=== PATIENT | female | born 1965 | race Caucasian/White ===

== ENCOUNTER 2017-06-21 09:44 | Day surgery (SDC) | payer MEDICAID ==
[~2017-06-21 09:44] MED LIST: RINGER'S SOLUTION,LACTATED 1,000 ML IV PRN
[2017-06-21] MEDS ORDERED: RINGER'S SOLUTION,LACTATED 1,000 ML IV PRN (11:11)
[2017-06-21 12:14] VITALS: BP 143/66
--- NOTE | 2017-06-21 15:58 | OR ---
Operative Report - Dictated Report Narrative: OPERATIVE REPORT DATE OF OPERATION: 06/21/2017 PREOPERATIVE DIAGNOSIS: Family history of colon cancer. No prior dedicated colon studies. POSTOPERATIVE DIAGNOSIS: Normal colonoscopy OPERATION: Colonoscopy SURGEON: Yessica Guzmán MD ANESTHESIA: ARIEL Aguila CRNA INDICATIONS FOR PROCEDURE: The patient is a 51-year-old female referred by Dr Rosa. She has had no previous dedicated colon studies. Her grandfather had colon cancer at an advanced age. She is currently asymptomatic FINDINGS: Normal colonoscopy NARRATIVE OF PROCEDURE: The patient was identified in the holding area, and prior to the administration of anesthetic, a multidisciplinary timeout was observed. With the patient in the left lateral position and after the administration of intravenous sedation, the perineum was inspected. There was no evidence of pilonidal disease or skin breakdown. The external appearance of the anus was normal. Sphincter tone was good. The flexible fiberoptic colonoscope was inserted into the rectum which was insufflated with air. The rectal mucosa and submucosal vascular pattern appeared normal, the prep was seen to be complete. The scope was advanced through the sigmoid colon, up the descending colon, and around the splenic flexure where the triangular haustral architecture of the transverse colon was seen. The scope was advanced across the transverse colon, around the hepatic flexure to the cecum, where the confluence of tenia and the ileocecal valve were identified. The mucosa at this level appeared normal. The scope was then slowly withdrawn in a circular fashion so that all aspects of colonic mucosa were inspected. The colon was normal in course and caliber. The haustral architecture appeared well preserved throughout with no evidence of external compression. The mucosa and submucosal vascular pattern appeared normal, specifically there was no gross evidence to suggest colitis or inflammatory bowel disease and no AV malformations were seen. No angie diverticulosis was demonstrated. No polyps were encountered. The scope was gradually withdrawn to the level of the rectum. As much insufflated air as possible was removed. The scope was withdrawn from the patient and the procedure terminated. The patient tolerated the anesthetic and procedure well without complication and was transferred back to the ambulatory surgery area awake and in stable condition. The patient remained stable throughout a period of postoperative observation. She denied abdominal discomfort, was able to tolerate by mouth intake, and was up without assistance. I shared the operative findings with the patient and she was given copies of the photographs which appear in the medical record. She was discharged home with instructions not to engage in hazardous activity today , but may resume normal activity tomorrow, and advance diet as tolerated. She is to continue those medications as listed in the history and physical exam. RECOMMENDATION: Colon surveillance in 10 years depending upon findings and symptoms Reviewed and electronically signed
== END 2017-06-21 09:45 | disposition home or self-care (01) ==
LOC: AMB 09:44
PROVIDERS: ATTEND Surgery
PROC: 0DJD8ZZ Inspection of Lower Intestinal Tract, Via Natural or Artificial Opening Endoscopic (ICD-10-PCS; principal; 2017-06-21 10:30)
DX: Z12.11 Encounter for screening for malignant neoplasm of colon (principal); I10 Essential (primary) hypertension; E11.9 Type 2 diabetes mellitus without complications; E78.5 Hyperlipidemia, unspecified; I25.10 Atherosclerotic heart disease of native coronary artery without angina pectoris; F17.200 Nicotine dependence, unspecified, uncomplicated; Z68.38 Body mass index [BMI] 38.0-38.9, adult; Z80.0 Family history of malignant neoplasm of digestive organs

== ENCOUNTER 2020-11-14 15:02 | Inpatient (IN) ==
[2020-11-14] MEDS ORDERED: ALBUTEROL SULFATE 2.5 MG/0.5 ML VIAL.NEB IH ONE (15:21)
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
[2020-11-14 15:49] LABS: Hematocrit 37.6 % (37.0-47.0); Hemoglobin 11.6 gm/dL (12.5-16.0); Mean Cell Volume 88.3 fl (78-100); Mean Corpuscular Hemoglobin 27.2 pg (27-31); Mean Corpuscular Hgb Conc 30.9 g/dl (32-36); Mean Platelet Volume 10.5 fl (8-12.5); Neutrophil # 6.6 K/mm3 (1.3-6.0); Neutrophil % 72.2 % (42-75.0); Platelet Count 233 K/mm3 (150-450); Red Blood Count 4.26 M/mm3 (4.2-5.4); Red Cell Distribution Width 15.8 % (11.5-14.0); White Blood Count 9.2 K/mm3 (4.0-10.5)
[2020-11-14 16:29] LABS: Albumin * 3.6 gm/dl (3.4-5.0); Anion Gap 10.6 mmol/L (6.8-13.8); BUN/Creatinine Ratio 19.2 (9.0-21.6); Ca. Corrected For Albumin 8.4 mg/dL (8.4-10.2); Calcium * 8.4 mg/dL (7.9-10.9); Carbon Dioxide 27.1 mmol/L (24-32.6); Potassium 3.7 mmol/L (3.4-4.6); Total Protein 6.7 gm/dL (6.2-8.2); Troponin I 0.038 ng/mL (0.00-0.10)
[2020-11-14] MEDS ORDERED: FUROSEMIDE 10 MG/ML VIAL IV ONE (16:29)
[2020-11-14] MEDS ORDERED: cefTRIAXone SODIUM 1,000 MG/100 ML BAG IV ONE (17:56)
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
[2020-11-14] MEDS: LISINOPRIL 20 MG TABLET PO SCH (20:32)
[2020-11-14] MEDS: INSULIN GLARGINE,HUM.REC.ANLOG 100 UNITS/ML VIAL SC SCH (20:33)
[2020-11-15 06:31] LABS: Hematocrit 33.5 % (37.0-47.0); Hemoglobin 10.1 gm/dL (12.5-16.0); Mean Cell Volume 89.6 fl (78-100); Mean Corpuscular Hgb Conc 30.1 g/dl (32-36); Mean Platelet Volume 10.3 fl (8-12.5); Neutrophil % 65.7 % (42-75.0); Platelet Count 231 K/mm3 (150-450); Red Blood Count 3.74 M/mm3 (4.2-5.4); Red Cell Distribution Width 15.8 % (11.5-14.0); White Blood Count 7.6 K/mm3 (4.0-10.5)
[2020-11-15 06:54] LABS: Anion Gap 12.6 mmol/L (6.8-13.8); BUN/Creatinine Ratio 13.2 (9.0-21.6); Ca. Corrected For Albumin 8.9 mg/dL (8.4-10.2); Calcium * 8.4 mg/dL (7.9-10.9); Carbon Dioxide 30.4 mmol/L (24-32.6); TSH * 3.156 uIU/mL (0.358-3.74)
[2020-11-15] MEDS: INSULIN LISPRO 100 UNITS/ML VIAL SC SCH ×3 (07:07→16:51)
[2020-11-15] MEDS ORDERED: POTASSIUM CHLORIDE 10 MEQ TABLET.SA PO ONE (07:54)
[2020-11-15] MEDS: FUROSEMIDE 10 MG/ML VIAL IV SCH ×4 (08:23→19:05)
[2020-11-15] MEDS: POTASSIUM CHLORIDE 20 MEQ TABLET.SA PO SCH ×2 (08:32→16:57)
[2020-11-15] MEDS: LISINOPRIL 20 MG TABLET PO SCH (08:32)
[2020-11-15] MEDS: FUROSEMIDE 10 MG/ML VIAL IV ONE ×2 (08:32→08:42)
--- NOTE | 2020-11-15 14:04 | PN ---
Subjective - Date and Time Seen Date: 11/15/20 Time: 13:44 Subjective Narrative: Patients tired but says she is less SOB. Afebrile. Weight is not accurate. Fluid balance only shows a little over 1 liter. She did not get the the IV lasix I ordered last night. Objective - Review of Systems Generalized/Overall Review: Reports: Weakness. Denies: Chills, Fever EENTM: Denies: Blurred Vision Respiratory: Reports: Shortness of Breath, Orthopnea. Denies: Cough, Wheezing Cardiac: Reports: Edema. Denies: Chest Pain, Palpitations Abdominal: Denies: Nausea, Vomiting, Abdominal Pain Genitourinary Symptoms: Denies: Urgency, Frequency Musculoskeletal Complaints: Denies: Joint Pain, Back Pain Neurological: Denies: Headache Skin: Reports: Dryness, Lesions - scaly, Rash Endocrine: Denies: Intolerance to Cold, Intolerance to Heat Misc: All systems neg except as marked - Vitals Vitals: Last Vital Signs Temp 36.4 C 11/15/20 06:35 Pulse 133 H 11/15/20 08:44 Resp 18 11/15/20 06:35 BP 102/60 11/15/20 08:44 Pulse Ox 94 11/15/20 06:35 - Abnormal Lab Findings Abnormal Lab Findings: Abnormal Lab Results 11/14/20 11/14/20 11/14/20 Range/Units 15:35 16:00 16:00 RBC (4.2-5.4) M/mm3 Hgb 11.6 L (12.5-16.0) gm/dL Hct (37.0-47.0) % MCHC 30.9 L (32-36) g/dl RDW 15.8 H (11.5-14.0) % Immature Gran # (Auto) 0.04 H (0.000-0.0310) K/mm3 Lymphocytes % 16.2 L (20-51) % Monocytes % 10.7 H (0.0-9) % Neutrophils # 6.6 H (1.3-6.0) K/mm3 Lymphocytes # 1.48 L (1.5-3.5) k/mm3 D-Dimer 9.42 H (0.19-0.49) ugFEU/mL Sodium 129 L (132-142) mmol/L Potassium (3.4-4.6) mmol/L Chloride 95 L (97-106) mmol/L Random Glucose 161 H (70-110) mg/dL Total Bilirubin 3.0 H (0.0-1.1) mg/dL AST 497 H (0-48) U/L ALT 1258 H (19-67) U/L Alkaline Phosphatase 236 H (50-170) U/L B-Natriuretic Peptide 2531 H (5-150) pg/mL Total Protein (6.2-8.2) gm/dL Albumin (3.4-5.0) gm/dl 11/15/20 11/15/20 Range/Units 06:26 06:26 RBC 3.74 L (4.2-5.4) M/mm3 Hgb 10.1 L (12.5-16.0) gm/dL Hct 33.5 L (37.0-47.0) % MCHC 30.1 L (32-36) g/dl RDW 15.8 H (11.5-14.0) % Immature Gran # (Auto) (0.000-0.0310) K/mm3 Lymphocytes % (20-51) % Monocytes % 12.0 H (0.0-9) % Neutrophils # (1.3-6.0) K/mm3 Lymphocytes # (1.5-3.5) k/mm3 D-Dimer (0.19-0.49) ugFEU/mL Sodium (132-142) mmol/L Potassium 3.0 L (3.4-4.6) mmol/L Chloride (97-106) mmol/L Random Glucose 114 H (70-110) mg/dL Total Bilirubin 2.0 H (0.0-1.1) mg/dL AST 306 H (0-48) U/L ALT 887 H (19-67) U/L Alkaline Phosphatase 189 H (50-170) U/L B-Natriuretic Peptide (5-150) pg/mL Total Protein 6.0 L (6.2-8.2) gm/dL Albumin 3.0 L (3.4-5.0) gm/dl - Exam Constitutional: Present: Alert, Oriented x3, Cooperative, Morbidly obese ENT Exam: Present: hearing grossly normal Neck: Present: supple. Absent: lymphadenopathy (R), lymphadenopathy (L) Respiratory: Present: decreased breath sounds, No rales, No wheezing Cardiovascular/Chest: Present: regular rate, rhythm, no JVD, tachycardia, systolic murmur - faint Abdomen: Present: Normal bowel sounds, soft, nontender, obese Extremity: Present: lower extremity edema, other - positive tattoo, flaky. Absent: no calf tenderness Assessment/Plan Plan Narrative: Latonya is a 54-year-old white female who was admitted yesterday for increasing shortness of breath, edema and was found to be in acute congestive heart failure. She was a patient of mine who was lost to follow-up since February 2019. Reviewing her records I did not see her to have had a previous past medical history of congestive heart failure and so this is not an acute on chronic exacerbation of CHF. 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 She did have a history of coronary artery disease status post stenting with a history of MD. Her echocardiogram today s howed borderline left ventricular hypertrophy, with severe global wall motion hypokinesis, ejection fraction of only 19-20%, mild MR, dilated inferior vena cava, moderate TR and RVSP of 49 with pulmonary hypertension. We will start her on Coreg 3.125 twice daily, spironolactone 25 mg p.o. daily to be started in am, d/c K in the morning, continue with her IV Lasix diuresis. We will continue with her LITO inhibitor I but will decrease it to 5 mg PO Q Daily . If her BP allows will ad isosorbide. I will change her status from observation to acute as she needs further diuresis to improve her congestive heart failure status and to decompress her PHTN and liver congestion. Her ultrasound shows fatty liver and thickening of the gallbladder wall without any biliary dilatation consider acalculous cholecystitis. Since patient is afebrile with no leukocytosis, clinical signs of gallbladder disease I still think this is due to passive congestion of her liver from her severe acute congestive heart failure as her liver function tests are improving with diuresis. I will sign outpatient to the physician transportation dispatch manager for this weekend. Continue to monitor fluid input output, daily weight, kidney function and electrolytes as well as liver function. - Problems/Diagnosis (1) Acute CHF Problem: Acute Qualifiers: Heart failure type: combined systolic and diastolic Qualified Code(s): I50.41 - Acute combined systolic (congestive) and diastolic (congestive) heart failure (2) Elevated liver enzymes Problem: Acute (3) Ascites Problem: Acute (4) Pleural effusion Problem: Acute (5) Diabetes mellitus Problem: Chronic Qualifiers: (6) Stented coronary artery Problem: Resolved (7) Hypertension Problem: Chronic Qualifiers: Hypertension type: essential hypertension Qualified Code(s): I10 - Essential (primary) hypertension (8) Hyperlipidemia Problem: Chronic Qualifiers: Hyperlipidemia type: pure hypercholesterolemia Qualified Code(s): E78.00 - Pure hypercholesterolemia, unspecified (9) Buschke-Ollendorf syndrome Problem: Chronic
[2020-11-15] MEDS: ENOXAPARIN SODIUM 40 MG/0.4 ML SYRG SC SCH (14:34)
[2020-11-15 19:08] LABS: Carbon Dioxide 29.3 mmol/L (24-32.6); Estimated Creat Clear 82.1
[2020-11-15 19:24] LABS: Potassium 4.1 mmol/L (3.4-4.6)
[2020-11-15 19:28] LABS: Anion Gap 12.8 mmol/L (6.8-13.8)
[2020-11-15] MEDS ORDERED: tiZANidine HCL 4 MG TABLET PO PRN (19:41)
[2020-11-15] MEDS: CARVEDILOL 3.125 MG TABLET PO SCH (20:09)
[2020-11-15] MEDS: INSULIN GLARGINE,HUM.REC.ANLOG 100 UNITS/ML VIAL SC SCH (20:13)
[2020-11-16] MEDS: INSULIN LISPRO 100 UNITS/ML VIAL SC SCH ×3 (06:46→17:21)
[2020-11-16 08:03] LABS: Albumin * 3.1 gm/dl (3.4-5.0); Anion Gap 11.3 mmol/L (6.8-13.8); BUN/Creatinine Ratio 17.8 (9.0-21.6); Bilirubin, Total 1.7 mg/dL (0.0-1.1); Ca. Corrected For Albumin 8.9 mg/dL (8.4-10.2); Calcium * 8.5 mg/dL (7.9-10.9); Carbon Dioxide 30.5 mmol/L (24-32.6); Potassium 3.8 mmol/L (3.4-4.6); Total Protein 5.8 gm/dL (6.2-8.2); Troponin I 0.028 ng/mL (0.00-0.10)
[2020-11-16] MEDS: CARVEDILOL 3.125 MG TABLET PO SCH ×2 (09:08→20:36)
[2020-11-16] MEDS: POTASSIUM CHLORIDE 10 MEQ TABLET.SA PO SCH (09:08)
[2020-11-16] MEDS: SPIRONOLACTONE 25 MG TABLET PO SCH (09:09)
[2020-11-16] MEDS: LISINOPRIL 5 MG TABLET PO SCH (09:10)
[2020-11-16] MEDS: FUROSEMIDE 10 MG/ML VIAL IV SCH ×2 (09:14→17:15)
--- NOTE | 2020-11-16 10:53 | PN ---
Subjective - Date and Time Seen Date: 11/16/20 Time: 10:45 Subjective Narrative: She's been unable to sleep. Has a rash across her back. Also has significant anxiety about having an EF of 20%, and is afraid of dying. Her father last year of heart troubles, and she is scared this will also happen to her. Objective - Review of Systems Respiratory: Denies: Shortness of Breath Abdominal: Reports: No Symptoms Reported Genitourinary Symptoms: Reports: No Symptoms Reported Neurological: Reports: Anxiety Skin: Reports: Rash - Vitals Vitals: Last Vital Signs Temp 36.3 C 11/16/20 06:41 Pulse 89 11/16/20 09:14 Resp 16 11/16/20 06:41 BP 132/78 11/16/20 09:14 Pulse Ox 96 11/16/20 06:41 - Abnormal Lab Findings Abnormal Lab Findings: Abnormal Lab Results 11/15/20 11/16/20 Range/Units 18:43 07:24 Chloride 95 L 94 L (97-106) mmol/L Random Glucose 163 H D 129 H (70-110) mg/dL Total Bilirubin 1.7 H (0.0-1.1) mg/dL AST 198 H (0-48) U/L ALT 712 H (19-67) U/L Alkaline Phosphatase 179 H (50-170) U/L B-Natriuretic Peptide 1274 H (5-150) pg/mL Total Protein 5.8 L (6.2-8.2) gm/dL Albumin 3.1 L (3.4-5.0) gm/dl - Exam Constitutional: Present: Alert, Cooperative, No distress, Morbidly obese Respiratory: Present: lungs clear, normal breath sounds Cardiovascular/Chest: Present: other - distant heart sounds Abdomen: Present: soft, obese Extremity: Absent: lower extremity edema Skin Exam: Present: other - erythematous macular rash of back Neurologic: Present: other - tearful Assessment/Plan Plan Narrative: Day #3 of hospitalization for acute CHF exacerbation. Transaminases and alkaline phosphatase improving, and she is breathing easier. These were likely elevated due to her acute CHF. She is getting 40 mg IV lasix bid, and may be able to change this to po tomorrow. Echo showed an EF of 20% with a decrease in global wall motion. Carvedilol, spironolactone, K+ started yesterday. She may qualify for cardiopulmonary rehab after DC. Anticipate DC in greater than 24 hours. - Problems/Diagnosis (1) Heart failure with reduced ejection fraction Problem: Acute (2) Acute CHF Problem: Acute Qualifiers: Heart failure type: combined systolic and diastolic Qualified Code(s): I50.41 - Acute combined systolic (congestive) and diastolic (congestive) heart failure (3) Elevated bilirubin Problem: Acute (4) Elevated liver enzymes Problem: Acute (5) Pleural effusion Problem: Acute (6) Hypertension Problem: Chronic Qualifiers: Hypertension type: essential hypertension Qualified Code(s): I10 - Essential (primary) hypertension (7) Hyperlipidemia Problem: Chronic Qualifiers: Hyperlipidemia type: pure hypercholesterolemia Qualified Code(s): E78.00 - Pure hypercholesterolemia, unspecified (8) Morbid obesity with BMI of 40.0-44.9, adult Problem: Acute (9) Coronary artery disease Problem: Acute (10) Diabetes mellitus Problem: Chronic Qualifiers: (11) Anxiety Problem: Acute (12) Rash Problem: Acute
[2020-11-16] MEDS: hydrOXYzine PAMOATE 25 MG CAPSULE PO PRN ×2 (14:27→22:29)
[2020-11-16] MEDS: ENOXAPARIN SODIUM 40 MG/0.4 ML SYRG SC SCH (14:27)
[2020-11-16] MEDS: LORazepam 0.5 MG TABLET PO PRN (20:36)
[2020-11-16] MEDS: INSULIN GLARGINE,HUM.REC.ANLOG 100 UNITS/ML VIAL SC SCH (20:36)
[2020-11-17] MEDS: INSULIN LISPRO 100 UNITS/ML VIAL SC SCH ×3 (06:27→16:55)
[2020-11-17] MEDS: FUROSEMIDE 10 MG/ML VIAL IV SCH (08:01)
[2020-11-17] MEDS: SPIRONOLACTONE 25 MG TABLET PO SCH (08:05)
[2020-11-17] MEDS: LISINOPRIL 5 MG TABLET PO SCH (08:06)
[2020-11-17] MEDS: POTASSIUM CHLORIDE 10 MEQ TABLET.SA PO SCH (08:06)
[2020-11-17] MEDS: CARVEDILOL 3.125 MG TABLET PO SCH ×2 (08:06→20:26)
[2020-11-17 08:38] LABS: Albumin * 3.2 gm/dl (3.4-5.0); Anion Gap 7.3 mmol/L (6.8-13.8); BUN/Creatinine Ratio 16.7 (9.0-21.6); Bilirubin, Total 1.5 mg/dL (0.0-1.1); Ca. Corrected For Albumin 8.9 mg/dL (8.4-10.2); Calcium * 8.6 mg/dL (7.9-10.9); Carbon Dioxide 34.7 mmol/L (24-32.6); Total Protein 6.3 gm/dL (6.2-8.2)
--- NOTE | 2020-11-17 09:11 | PN ---
Subjective - Date and Time Seen Date: 11/17/20 Time: 09:30 Subjective Narrative: She has some nausea this morning. Is breathing better. Is worried about getting SOB at home, and is wondering if she will need oxygen. Would like a walker and bedside commode. Objective - Review of Systems Generalized/Overall Review: Denies: Fever Respiratory: Reports: Shortness of Breath - with exertion Cardiac: Denies: Edema Abdominal: Reports: Nausea Genitourinary Symptoms: Reports: No Symptoms Reported - Vitals Vitals: Last Vital Signs Temp 36.8 C 11/17/20 06:44 Pulse 95 11/17/20 08:06 Resp 20 11/17/20 06:44 BP 124/63 11/17/20 08:06 Pulse Ox 95 11/17/20 06:44 - Abnormal Lab Findings Abnormal Lab Findings: Abnormal Lab Results 11/17/20 Range/Units 08:08 Chloride 94 L (97-106) mmol/L Carbon Dioxide 34.7 H (24-32.6) mmol/L Random Glucose 120 H (70-110) mg/dL Total Bilirubin 1.5 H (0.0-1.1) mg/dL AST 144 H (0-48) U/L ALT 596 H (19-67) U/L Alkaline Phosphatase 176 H (50-170) U/L Albumin 3.2 L (3.4-5.0) gm/dl - Exam Constitutional: Present: Alert, Cooperative, No distress, Morbidly obese Respiratory: Present: lungs clear, decreased breath sounds Cardiovascular/Chest: Present: regular rate, rhythm - distant heart sounds Abdomen: Present: nontender, obese Extremity: Absent: lower extremity edema Eye contact: Present: cooperative, good eye contact Assessment/Plan Plan Narrative: Day #4 of hospitalization for acute CHF exacerbation. Transaminases and alkaline phosphatase continue to improve and she is breathing easier than on admission. She is not requiring oxygen at rest, and vitals are normal. These were likely elevated due to her acute CHF. Will change lasix from IV to PO, and change timing so her latest dose is early afternoon to avoid interfering with sleep overnight. Echo showed an EF of 20% with a decrease in global wall motion. Carvedilol, spironolactone, K+ started this admission. She may qualify for cardiopulmonary rehab after DC. PT yan ordered to see if she qualifies for a walker. Home O2 eval also ordered. She would like a bedside commode at home, and appreciate case management assistance in acquiring one of these. - Problems/Diagnosis (1) Heart failure with reduced ejection fraction Problem: Acute (2) Acute CHF Problem: Acute Qualifiers: Heart failure type: combined systolic and diastolic Qualified Code(s): I50.41 - Acute combined systolic (congestive) and diastolic (congestive) heart failure (3) Elevated bilirubin Problem: Acute (4) Elevated liver enzymes Problem: Acute (5) Pleural effusion Problem: Acute (6) Hypertension Problem: Chronic Qualifiers: Hypertension type: essential hypertension Qualified Code(s): I10 - Essential (primary) hypertension (7) Hyperlipidemia Problem: Chronic Qualifiers: Hyperlipidemia type: pure hypercholesterolemia Qualified Code(s): E78.00 - Pure hypercholesterolemia, unspecified (8) Morbid obesity with BMI of 40.0-44.9, adult Problem: Acute (9) Coronary artery disease Problem: Acute (10) Diabetes mellitus Problem: Chronic Qualifiers: (11) Anxiety Problem: Acute (12) Rash Problem: Acute
[2020-11-17] MEDS: ENOXAPARIN SODIUM 40 MG/0.4 ML SYRG SC SCH (14:19)
[2020-11-17] MEDS: FUROSEMIDE 40 MG TABLET PO SCH ×2 (14:21→20:26)
[2020-11-17] MEDS: hydrOXYzine PAMOATE 25 MG CAPSULE PO PRN (15:37)
[2020-11-17] MEDS: INSULIN GLARGINE,HUM.REC.ANLOG 100 UNITS/ML VIAL SC SCH (20:26)
[2020-11-17] MEDS: LORazepam 0.5 MG TABLET PO PRN (22:16)
[2020-11-18] MEDS: hydrOXYzine PAMOATE 25 MG CAPSULE PO PRN (00:46)
[2020-11-18 07:08] LABS: Albumin * 3.2 gm/dl (3.4-5.0); Anion Gap 7.6 mmol/L (6.8-13.8); BUN/Creatinine Ratio 15.5 (9.0-21.6); Bilirubin, Total 1.3 mg/dL (0.0-1.1); Ca. Corrected For Albumin 9.1 mg/dL (8.4-10.2); Calcium * 8.8 mg/dL (7.9-10.9); Potassium 3.6 mmol/L (3.4-4.6); Total Protein 6.5 gm/dL (6.2-8.2)
[2020-11-18] MEDS: INSULIN LISPRO 100 UNITS/ML VIAL SC SCH ×2 (07:22→11:54)
[2020-11-18] MEDS: SPIRONOLACTONE 25 MG TABLET PO SCH (08:15)
[2020-11-18] MEDS: CARVEDILOL 3.125 MG TABLET PO SCH (08:15)
[2020-11-18] MEDS: POTASSIUM CHLORIDE 10 MEQ TABLET.SA PO SCH (08:15)
[2020-11-18] MEDS: FUROSEMIDE 40 MG TABLET PO SCH (08:15)
[2020-11-18] MEDS: LISINOPRIL 5 MG TABLET PO SCH (08:16)
--- NOTE | 2020-11-18 08:32 | DS ---
(1) Acute CHF Problem: Resolved Qualifiers: Heart failure type: combined systolic and diastolic Qualified Code(s): I50.41 - Acute combined systolic (congestive) and diastolic (congestive) heart failure (2) Heart failure with reduced ejection fraction Diagnosis(s): combined with diastolic dysfunction Problem: Acute (3) Elevated liver enzymes Problem: Acute (4) Ascites Problem: Acute (5) Pleural effusion Problem: Acute (6) Diabetes mellitus Problem: Chronic Qualifiers: (7) Stented coronary artery Problem: Resolved (8) Hypertension Problem: Chronic Qualifiers: Hypertension type: essential hypertension Qualified Code(s): I10 - Essential (primary) hypertension (9) Hyperlipidemia Problem: Chronic Qualifiers: Hyperlipidemia type: pure hypercholesterolemia Qualified Code(s): E78.00 - Pure hypercholesterolemia, unspecified (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 The patient has been lost to follow-up since February 2019 when I sent her to [facility] to podiatry and infectious disease for possible osteomyelitis of her toe. The patient said that she had run out of her medications in July 2020 and pharmacy did not refill it. She was seen in our emergency room in 2020 for shortness of breath and was given Lasix with potassium pills and discharge. She has since run out of this medications and since the beginning of October she has been having shortness of breath. Today her shortness of breath was at its worse and so she went to the emergency room. Her hemoglobin was 11.6 with an MCV of 88.3, sodium of 129, chloride of 95, creatinine of 0.78 with a GFR of 82, random blood sugar 161, total bilirubin of 3, AST of 497, ALT of 1258, alkaline phosphatase of 236, troponin of 0.038, BNP of 2531, amylase lipase were within normal limits. She was SARS-CoV-2 negative. Her chest x-ray showed bilateral effusion left greater than right. Her EKG showed sinus tachycardia of [address]-T wave changes. She was then given 40 mg of IV Lasix and was admitted for further evaluation and treatment. She did have a CT scan as her D-dimer was elevated and it did not show any pulmonary embolism but showed congestive heart failure and liver cirrhosis. Her US showed thickened GB wall with no GB stones and normal biliary ducts- consider acalculous cholecystitits. Sinc she did not have fever, RUQ pain, leukocytosis and no N/V her elevated LFT were thought to be secondary to her passive congestion of her liver from acute CHF. Her Echo showed normal ventricular size, severe decrease in global wall motion, EF 20 %, mild MR, mild to moderate TR, PHTN, RVSP 49 mm Hg, Dilated IVC. Her elevated pulmonary pressure is likely due to left sided HF but she does have a h/o of chronic smoki ng but stopped last 2019. She was continued with diureses, and started on LITO I, Coreg, Spironolactone, will start her on Imdur. Her LFTS/BNP improved. Clinically she was less SOB. She lost 12 kg ( from 132 Kg to 120.2 Kg). We will discharge her today and make a referral to cardiology. She is homebound due to the severity of CHFand other medical conditions ( CAD s/p Stenting, DM type 2. Deconditoining, PEPE). She will need nursing service to monitor her medications and diet complicance, monitoring of weight and vital signs. The need for her PT is for strengthening exercises of her physical strength from deconditioning and improving her cardiopulmonary reserve. The need for home [facility] services is directly related to the time spent face to face with the patient. Will hold her metformin and also start her on a statin when her LFT are back to normal. Procedures Performed: none Results and Findings: Pending Mircobiology Results 11/14/20 16:00 Blood Blood Culture - Preliminary NO GROWTH AFTER 48 HOURS 11/14/20 15:35 Blood Blood Culture - Preliminary NO GROWTH AFTER 48 HOURS Lab Pending Results 11/14/20 15:35: WBC 9.2, RBC 4.26, Hgb 11.6 L, Hct 37.6, MCV 88.3, MCH 27.2, MCHC 30.9 L, RDW 15.8 H, Plt Count 233, MPV 10.5, Immature Gran % (Auto) 0.40, Immature Gran # (Auto) 0.04 H, Neutrophils % 72.2, Lymphocytes % 16.2 L, Monocytes % 10.7 H, Eosinophils % 0.2, Basophils % 0.3, Nucleated RBC % 0.0, Neutrophils # 6.6 H, Lymphocytes # 1.48 L, Monocytes # 1.0, Eosinophils # 0.0, Absolute Basophils 0.0 11/14/20 15:35: SARS-CoV-2 (PCR) Not detected 11/14/20 16:00: Sodium 129 L, Plasma Sodium 130, Potassium 3.7, Chloride 95 L, Carbon Dioxide 27.1, Anion Gap 10.6, BUN 15, Creatinine 0.78, Est GFR (Non-Af Amer) 82, BUN/Creatinine Ratio 19.2, Random Glucose 161 H, Calcium 8.4, Calcium Adj for Albumin 8.4, Total Bilirubin 3.0 H, AST 497 H, ALT 1258 H, Alkaline Phosphatase 236 H, Troponin I 0.038, B-Natriuretic Peptide 2531 H, Total Protein 6.7, Albumin 3.6 11/14/20 16:00: D-Dimer 9.42 H 11/14/20 16:00: Lipase 310 11/15/20 06:26: WBC 7.6, RBC 3.74 L, Hgb 10.1 L, Hct 33.5 L, MCV 89.6, MCH 27.0, MCHC 30.1 L, RDW 15.8 H, Plt Count 231, MPV 10.3, Immature Gran % (Auto) 0.10, Immature Gran # (Auto) 0.01, Neutrophils % 65.7, Lymphocytes % 21.1, Monocytes % 12.0 H, Eosinophils % 0.7, Basophils % 0.4, Nucleated RBC % 0.0, Neutrophils # 5.0, Lymphocytes # 1.60, Monocytes # 0.9, Eosinophils # 0.1, Absolute Basophils 0.0 11/15/20 06:26: Sodium 137, Plasma Sodium 137, Potassium 3.0 L, Chloride 97, Carbon Dioxide 30.4, Anion Gap 12.6, BUN 12, Creatinine 0.91, Est GFR (Non-Af Amer) 68, BUN/Creatinine Ratio 13.2, Random Glucose 114 H, Calcium 8.4, Calcium Adj for Albumin 8.9, Total Bilirubin 2.0 H, AST 306 H, ALT 887 H, Alkaline Phosphatase 189 H, Total Protein 6.0 L, Albumin 3.0 L, TSH 3.156 11/15/20 18:43: Sodium 133, Plasma Sodium 134, Potassium 4.1 D, Chloride 95 L, Carbon Dioxide 29.3, Anion Gap 12.8, BUN 15, Creatinine 0.79, Est GFR (Non-Af Amer) 81, BUN/Creatinine Ratio 19.0, Random Glucose 163 H D, Calcium 8.0 11/16/20 07:24: Sodium 132, Plasma Sodium 132, Potassium 3.8, Chloride 94 L, Carbon Dioxide 30.5, Anion Gap 11.3, BUN 16, Creatinine 0.90, Est GFR (Non-Af Amer) 69, BUN/Creatinine Ratio 17.8, Random Glucose 129 H, Calcium 8.5, Calcium Adj for Albumin 8.9, Total Bilirubin 1.7 H, AST 198 H, ALT 712 H, Alkaline Phosphatase 179 H, Troponin I 0.028, B-Natriuretic Peptide 1274 H, Total Protein 5.8 L, Albumin 3.1 L 11/17/20 08:08: Sodium 132, Plasma Sodium 132, Potassium 4.0, Chloride 94 L, Carbon Dioxide 34.7 H, Anion Gap 7.3, BUN 16, Creatinine 0.96, Est GFR (Non-Af Amer) 64, BUN/Creatinine Ratio 16.7, Random Glucose 120 H, Calcium 8.6, Calcium Adj for Albumin 8.9, Total Bilirubin 1.5 H, AST 144 H, ALT 596 H, Alkaline Phosphatase 176 H, Total Protein 6.3, Albumin 3.2 L 11/18/20 06:51: Sodium 131 L, Plasma Sodium 131, Potassium 3.6, Chloride 95 L, Carbon Dioxide 32.0, Anion Gap 7.6, BUN 17, Creatinine 1.10, Est GFR (Non-Af Amer) 55 L, BUN/Creatinine Ratio 15.5, Random Glucose 115 H, Calcium 8.8, Calcium Adj for Albumin 9.1, Total Bilirubin 1.3 H, AST 124 H, ALT 492 H, Alkaline Phosphatase 166, Total Protein 6.5, Albumin 3.2 L Discharge Location: Home Disposition: Home Health Service Home Health Agency: [facility] Home Health Condition: Fair Face to Face Encounter completed per CMS Guidelines: Yes Discharge Activity: Activity as tolerated Discharge Diet: Consistent carbs, Low salt Half-Way Therapy: Physical Therapy Referrals: Francis Rosa MD [Primary Care Provider] - Problem Oriented Discharge Instructions to Patient/Family: Heart Failure, [id number], Living With Heart Failure, Heart Failure and Exercise, CHF Patient Instructions Additional Patient Instructions (free text): [facility] new at discharge. Nursing please call and fax discharge information to them. TCM. Follow up with PCP in 1 week. Please make a referral to cardiology- Dr. Ayala -CHF wit reduced RF and diastolic dysfunction, Pulmonary hypertension. Prescriptions (Any new or edited meds): Spironolactone [Aldactone] 25 mg PO DAILY #30 tab Transmission Status: Received by [facility] Carvedilol [Coreg] 3.125 mg PO BID #60 tab Transmission Status: Received by [facility] glipiZIDE [Glipizide] 5 mg PO QAM #30 tab Transmission Status: Pending to [facility] Isosorbide Mononitrate [Imdur] 30 mg PO DAILY #30 tab.sr.24h Transmission Status: Received by [facility] Potassium Chloride [Klor-Con 10] 10 meq PO DAILY #30 tablet.sa Transmission Status: Received by [facility] Furosemide [Lasix] 40 mg PO BID #60 tab Transmission Status: Received by [facility] hydrOXYzine PAMOATE [Vistaril] 25 mg PO Q8H PRN #30 cap PRN Reason: Itching, Sleep and anxiety Transmission Status: Received by [facility] tiZANidine HCL [Zanaflex] 2 mg PO Q8H PRN #12 tab PRN Reason: Muscle Spasm Transmission Status: Received by [facility] Lisinopril [Zestril] 5 mg PO DAILY #30 tab Transmission Status: Received by [facility] Complete Home Medications List: Complete Home Medication List: Aspirin 325 mg PO DAILY 10/22/13 blood sugar diagnostic See Dose Instructions .ROUTE .MEDSUPPLY #20 ea 04/06/18 blood-glucose meter See Dose Instructions .ROUTE .MEDSUPPLY #1 ea 04/06/18 lancets See Dose Instructions .ROUTE .MEDSUPPLY #50 ea 04/06/18 metFORMIN HCL [Metformin HCl] 500 mg PO DAILY 11/14/20 Carvedilol [Coreg] 3.125 mg PO BID #60 tab 11/18/20 Furosemide [Lasix] 40 mg PO BID #60 tab 11/18/20 Isosorbide Mononitrate [Imdur] 30 mg PO DAILY #30 tab.sr.24h 11/18/20 Lisinopril [Zestril] 5 mg PO DAILY #30 tab 11/18/20 Potassium Chloride [Klor-Con 10] 10 meq PO DAILY #30 tablet.sa 11/18/20 Spironolactone [Aldactone] 25 mg PO DAILY #30 tab 11/18/20 glipiZIDE [Glipizide] 5 mg PO QAM #30 tab 11/18/20 hydrOXYzine PAMOATE [Vistaril] 25 mg PO Q8H PRN #30 cap 11/18/20 tiZANidine HCL [Zanaflex] 2 mg PO Q8H PRN #12 tab 11/18/20 Forms: Patient Portal Registration
[2020-11-18] MEDS ORDERED: ISOSORBIDE MONONITRATE 30 MG TAB.SR.24H PO SCH (09:00)
[2020-11-18 11:30] VITALS: BP 109/62
--- NOTE | 2020-11-18 11:54 | ECHO ---
This report is available in the EMR
[2020-11-18 14:57] LABS: Hepatitis C Antibody NON-REACTIVE (NON-REACTIVE); Hepatitis Panel Confirmation DNR
[2020-11-18 19:49] LABS: Hepatitis B Surface Antigen NON-REACTIVE (NON-REACTIVE)
== END 2020-11-18 12:05 | disposition home health service (06) | DRG 292 ==
LOC: ER 15:02 → MS 15:02
PROVIDERS: ADMIT Internal Medicine; ATTEND Internal Medicine
DX: I11.0 Hypertensive heart disease with heart failure; I25.10 Atherosclerotic heart disease of native coronary artery without angina pectoris; Z68.41 Body mass index [BMI] 40.0-44.9, adult; E11.8 Type 2 diabetes mellitus with unspecified complications; R21 Rash and other nonspecific skin eruption; E66.01 Morbid (severe) obesity due to excess calories; I27.20 Pulmonary hypertension, unspecified; E78.00 Pure hypercholesterolemia, unspecified; F41.9 Anxiety disorder, unspecified; R18.8 Other ascites; I50.41 Acute combined systolic (congestive) and diastolic (congestive) heart failure